=== PATIENT | male | born 1945 | race Caucasian/White ===

== ENCOUNTER 2017-02-16 06:14 | Inpatient (IN) | payer MEDICARE ==
[~2017-02-16] VITALS: Ht 173 cm; Wt 80.4 kg
[2017-02-16 07:37] LABS: BASOPHIL 1.4 % (0-2); EOSINOPHIL 11.1 % (0-7); HCT 25.6 % (42.0-52.0); INR 1.02 (0.9-1.2); LYMPHOCYTE 29.4 % (15-48); MCH 24.6 pg (25.0-31.0); MCV 76.6 fL (78.0-100.0); MONOCYTE 10.8 % (0-12); MPV 8.7 fL (6.0-9.5); NEUTROPHIL 47.3 % (41-80); PLT 282 K/uL (150-400); PTT 33.7 SECONDS (23.2-31.4); RBC 3.34 M/uL (4.70-6.00); RDW 16.7 % (11.5-14.0); WBC 6.4 K/uL (4.0-10.5)
[2017-02-16 07:39] LABS: HGB 8.2 g/dl (13.2-18.0)
[2017-02-16 07:46] LABS: ALBUMIN 3.8 g/dL (3.4-4.8); BILIRUBIN - TOTAL 0.2 mg/dL (0.1-1.0); CREATININE 1.2 mg/dL (0.7-1.2); GLOBULIN (CALCULATION) 2.6 g/dL (2.2-4.2); TOTAL PROTEIN 6.4 g/dL (6.4-8.3)
[2017-02-16 08:21] LABS: BILIRUBIN NEGATIVE (NEGATIVE); BLOOD NEGATIVE Ery/uL (NEGATIVE); CLARITY CLEAR (CLEAR); COLOR YELLOW (YELLOW); GLUCOSE (U) NORMAL (NORMAL); KETONE (U) NEGATIVE (NEGATIVE); LEUKOCYTES NEGATIVE Leu/uL (NEGATIVE); NITRITE NEGATIVE (NEGATIVE); PROTEIN NEGATIVE (NEGATIVE); UROBILINOGEN 0.2 mg/dL (0.2-1.0)
[2017-02-16 17:15] LABS: EOSINOPHIL NO PRINT 9.1 % (0-7); HCT 25.2 % (42.0-52.0); HGB 7.9 g/dL (13.2-18.0); LYMPHOCYTE NO PRINT 37.8 % (15-48); MCHC NO PRINT 31.3 g/dL (32.0-36.0); MCV NO PRINT 76.6 fL (78.0-100.0); MONOCYTE NO PRINT 9.6 % (0-12); MPV NO PRINT 8.2 fL (6.0-9.5); NEUTROPHIL NO PRINT 42.5 % (41-80); PLT NO PRINT 264 K/uL (150-400); RBC NO PRINT 3.29 M/uL (4.70-6.00); RDW NO PRINT 16.8 % (11.5-14.0)
[2017-02-17 04:59] LABS: HCT 24.5 % (42.0-52.0); MCH 24.1 pg (25.0-31.0); MCV 77.5 fL (78.0-100.0); MPV 8.5 fL (6.0-9.5); RBC 3.16 M/uL (4.70-6.00); RDW 16.8 % (11.5-14.0); WBC 4.8 K/uL (4.0-10.5)
[2017-02-17 05:00] LABS: HGB 7.6 g/dl (13.2-18.0)
[2017-02-17 05:17] LABS: CREATININE 1.4 mg/dL (0.7-1.2); POTASSIUM 4.1 mmol/L (3.5-5.1)
[2017-02-18 05:46] LABS: HGB 9.6 g/dl (13.2-18.0); MCH 25.1 pg (25.0-31.0); MCV 78.3 fL (78.0-100.0); MPV 8.5 fL (6.0-9.5); RBC 3.83 M/uL (4.70-6.00); RDW 17.6 % (11.5-14.0); WBC 5.7 K/uL (4.0-10.5)
[2017-02-18 05:56] LABS: CREATININE 1.3 mg/dL (0.7-1.2); POTASSIUM 3.9 mmol/L (3.5-5.1)
[2017-02-18] MEDS ORDERED: CARAFATE S500 MG/TSP PO (16:34)
[2017-02-18] MEDS ORDERED: PRILOSEC20 MG PO (16:34)
[2017-02-18] MEDS ORDERED: COZAAR50 MG PO (16:34)
[2017-02-18] MEDS ORDERED: ASPIR 8181 MG PO (16:35)
[2017-02-18] MEDS ORDERED: PRINIVIL10 MG PO (16:35)
[2017-02-18] MEDS ORDERED: LIPITOR40 MG PO (16:35)
[2017-02-18] MEDS ORDERED: SYNTHROID150 MCG PO (16:35)
[2017-02-18] MEDS ORDERED: COREG 6.25MG6.25 MG PO (16:36)
== END 2017-02-18 17:00 | disposition home health service (06) | DRG 378 ==
LOC: FER 06:14 → FMS 09:15
PROVIDERS: Emergency Medicine; Surgery; ADMIT Internal Medicine Nephrology
PROC: 0DJ08ZZ Inspection of Upper Intestinal Tract, Via Natural or Artificial Opening Endoscopic (ICD-10-PCS; principal; 2017-02-16)
PROC: 30233N1 Transfusion of Nonautologous Red Blood Cells into Peripheral Vein, Percutaneous Approach (ICD-10-PCS; 2017-02-17 08:00)
DX: K26.4 Chronic or unspecified duodenal ulcer with hemorrhage (principal); D62 Acute posthemorrhagic anemia; D64.9 Anemia, unspecified; I10 Essential (primary) hypertension; I25.10 Atherosclerotic heart disease of native coronary artery without angina pectoris; E78.5 Hyperlipidemia, unspecified; E03.9 Hypothyroidism, unspecified; Z79.1 Long term (current) use of non-steroidal anti-inflammatories (NSAID); Z95.5 Presence of coronary angioplasty implant and graft; Z86.14 Personal history of Methicillin resistant Staphylococcus aureus infection
CPT/HCPCS: 36415; 36430; 74022; 80048; 80053; 81003; 84439; 84443; 85014; 85018; 85025; 85610; 85730; 86850; 86900; 86901; 86922; 88305; 93005; 94010; C9113; J2704; P9016; Q9967

== ENCOUNTER 2017-06-17 12:10 | Emergency (ER) | payer MEDICARE ==
[~2017-06-17 12:10] MED LIST: ASPIR 8181 MG PO; CARAFATE S500 MG/TSP PO; COREG 6.25MG6.25 MG PO; COZAAR50 MG PO; LIPITOR40 MG PO; PRILOSEC20 MG PO; PRINIVIL10 MG PO; SYNTHROID150 MCG PO
[2017-06-17 12:27] LABS: BASOPHIL 0.4 % (0-2); EOSINOPHIL 0.7 % (0-7); HCT 37.3 % (42.0-52.0); HGB 11.7 g/dl (13.2-18.0); LYMPHOCYTE 11.2 % (15-48); MCH 23.8 pg (25.0-31.0); MCHC 31.4 g/dL (32.0-36.0); MONOCYTE 3.6 % (0-12); MPV 8.3 fL (6.0-9.5); NEUTROPHIL 84.1 % (41-80); PLT 257 K/uL (150-400); RBC 4.91 M/uL (4.70-6.00); WBC 11.3 K/uL (4.0-10.5)
[2017-06-17 12:37] LABS: INR 1.09 (0.9-1.2); PROTHROMBIN TIME 13.2 SECONDS (11.4-13.2)
[2017-06-17 12:45] LABS: ALBUMIN 4.6 g/dL (3.4-4.8); BILIRUBIN - TOTAL 0.6 mg/dL (0.1-1.0); CREATININE 1.3 mg/dL (0.7-1.2); GLOBULIN (CALCULATION) 2.9 g/dL (2.2-4.2); MAGNESIUM 2.12 mg/dL (1.40-2.10); POTASSIUM 4.2 mmol/L (3.5-5.1); TOTAL PROTEIN 7.5 g/dL (6.4-8.3)
[2017-06-17 12:51] LABS: CKMB 2.03 ng/mL (0.97-4.94); MYOGLOBIN 118 ng/mL (26-65); TROPONIN T < 0.010 ng/mL
[2017-06-17 13:04] LABS: PRO-BNP 129 pg/mL (0-125)
== END 2017-06-17 16:32 | disposition home or self-care (01) ==
LOC: FER 12:10
PROVIDERS: Emergency Medicine
DX: R07.9 Chest pain, unspecified (principal); R00.1 Bradycardia, unspecified; R11.2 Nausea with vomiting, unspecified; R05 Cough; M79.602 Pain in left arm; M79.601 Pain in right arm; I25.2 Old myocardial infarction; I10 Essential (primary) hypertension; I25.10 Atherosclerotic heart disease of native coronary artery without angina pectoris; E07.9 Disorder of thyroid, unspecified; Z79.899 Other long term (current) drug therapy; Z82.49 Family history of ischemic heart disease and other diseases of the circulatory system; Z87.19 Personal history of other diseases of the digestive system
CPT/HCPCS: 36415; 71010; 80053; 82550; 82553; 83735; 83874; 83880; 84484; 85025; 85610; 85730; 93005

== ENCOUNTER → 2022-06-11 | Day surgery (SDC) | payer MEDICARE ==
[~2022-06-11] VITALS: Ht 170.2 cm; Wt 79.4 kg
[~2022-06-11] MED LIST changes: +ASPIRIN325 MG PO; +LIPITOR20 MG PO; +NORVASC5 MG PO
== END | disposition home or self-care (01) ==
LOC: FAS 10:01
DX: R22.0 Localized swelling, mass and lump, head (principal); I10 Essential (primary) hypertension; E03.9 Hypothyroidism, unspecified; M19.90 Unspecified osteoarthritis, unspecified site; I25.10 Atherosclerotic heart disease of native coronary artery without angina pectoris; F41.9 Anxiety disorder, unspecified; Z95.5 Presence of coronary angioplasty implant and graft; E78.00 Pure hypercholesterolemia, unspecified; Z79.899 Other long term (current) drug therapy
CPT/HCPCS: J2001; J3010; J7120